=== PATIENT | female | born 1945 | race Caucasian/White ===

== ENCOUNTER → 2024-07-18 | Outpatient (CLI) | payer MEDICARE, OTHER, SELFPAY ==
--- NOTE | 2024-07-18 17:42 | CT_ITS ---
PROCEDURE: EXTREMITY LOWER WITHOUT CONTRA 07/18/2024 REASON FOR EXAM: RIGHT HIP PAIN, ? FX TECHNIQUE: Axial CT images of the right hip obtained without intravenous contrast. Coronal and Sagittal reconstruction series were provided. One or more dose reduction techniques were used (e.g., Automated exposure control, adjustment of the mA and/or kV according to patient size, use of iterative reconstruction technique RADIATION DOSE SUMMARY: CTDlvol: 12.5 mGy DLP: 479 mGycm COMPARISON: None FINDINGS: There is subtle irregularity of the anterior cortex of the right aspect of the sacrum (axial images 30-36, sagittal image 58). No displaced hip fracture. There is subtle hyperdensity along the hip joint space which could. Iwpe-le-gwkmtdal joint space narrowing and osteophyte formation with subchondral cyst formation in the acetabulum. Aortic atherosclerosis. Otherwise, the visualized intra-abdominal contents are unremarkable. Soft tissues are unremarkable. CT/Extremity Lower without Contra IMPRESSION: 1. No displaced hip fracture. There are worrisome finding for a nondisplaced s acral fracture. Recommend MRI for further evaluation. 2. Subtle hyperdensity throughout the hip joint space may represent chondrocal cinosis, as may be seen with calcium pyrophosphate deposition disease. 3. Qqev-[id number] osteoarthritis of the right hip. Reading Location: [facility]
== END | disposition home or self-care (01) ==
DX: S70.01XA Contusion of right hip, initial encounter (principal); M25.551 Pain in right hip
CPT/HCPCS: 73700